=== PATIENT | female | born 1985 ===

== ENCOUNTER 2017-03-04 17:54 | Emergency (ER) | payer OTHER ==
[2017-03-04 18:00] VITALS: BMI 23.9
[2017-03-04 18:16] VITALS: TEMP 98.1
--- NOTE | 2017-03-04 18:21 | ED PDOC ---
Arrival/HPI - General Time Seen by Provider: 03/04/17 18:00 Historian: Patient - History of Present Illness Narrative History of Present Illness (Text): 03/04/17 18:08 A 31 year old female presents to the emergency department complaining of back pain radiating to left side of chest since 08:40 this morning. Patient describes the pain as a sharp sensation, left side worse then right, with tightness in her left chest. She states the pain is worse when taking deep breaths and with movement. Patient notes mild shortness of breath and nausea but denies any recent trauma, injury, fever, chills, vomiting, diarrhea, abdominal pain, cough, sore throat, runny nose, dizziness, lower extremity pain/ swelling or any other complaints. Patient is on control. She denies any recent travel or surgeries. PMD: Dr. Prajapati Time/Duration: Other (08:40 this morning) Symptom Course: Unchanged Quality: Other Context: Home, Work Past Medical History - Provider Review Nursing Documentation Reviewed: Yes Family/Social History - Physician Review Nursing Documentation Reviewed: Yes Family/Social History: No Known Family HX Allergies/Home Meds Allergies/Adverse Reactions: Allergies No Known Allergies Allergy (Verified 03/04/17 17:59) Review of Systems - Physician Review All systems were reviewed & negative as marked: Yes - Review of Systems Constitutional: absent: Fevers, Night Sweats ENT: absent: Sore Throat, Rhinorrhea Respiratory: SOB. absent: Cough Cardiovascular: Chest Pain (Left sided chest tightness) Gastrointestinal: Nausea. absent: Abdominal Pain, Diarrhea, Vomiting Musculoskeletal: Back Pain (Left side worse than right). absent: Other (LE pain /swelling) Neurological: absent: Dizziness Physical Exam Vital Signs Reviewed: Yes Vital Signs Temp Pulse Resp BP Pulse Ox 03/04/17 21:20 81 16 128/73 98 03/04/17 19:45 77 16 123/81 100 03/04/17 19:07 92 H 18 129/92 H 99 03/04/17 18:08 98.1 F 86 16 129/96 H 99 03/04/17 18:06 96 H 20 129/96 H 100 Temperature: Afebrile Blood Pressure: Hypertensive Pulse: Tachycardic Respiratory Rate: Normal Appearance: Positive for: Well-Appearing, Non-Toxic, Comfortable Pain Distress: None Mental Status: Positive for: Alert and Oriented X 3 - Systems Exam Head: Present: Atraumatic, Normocephalic Pupils: Present: PERRL Conjunctiva: Present: Normal Mouth: Present: Moist Mucous Membranes Neck: Present: Normal Range of Motion Respiratory/Chest: Present: Clear to Auscultation, Good Air Exchange. No: Respiratory Distress, Accessory Muscle Use Cardiovascular: Present: Regular Rate and Rhythm, Normal S1, S2. No: Murmurs Abdomen: Present: Normal Bowel Sounds. No: Tenderness, Distention, Peritoneal Signs Back: Present: Other (Tenderness to palpation to left upper back around trapezius area) Upper Extremity: Present: Normal Inspection. No: Cyanosis, Edema Lower Extremity: Present: Normal Inspection. No: Edema Neurological: Present: GCS=15, CN II-XII Intact, Speech Normal Skin: Present: Warm, Dry, Normal Color. No: Rashes Psychiatric: Present: Alert, Oriented x 3, Normal Insight, Normal Concentration Medical Decision Making ED Course and Treatment: 03/04/17 18:08 Impression: A 31 year old female with back pain radiating to left chest. Patient notes mild shortness of breath and nausea. Plan: -- Chest angio CT -- Chest xray -- EKG -- Labs -- Urinalysis -- Toradol -- Reassess and disposition Progress Notes: EKG shows NSR at 89 BPM with normal intervals, normal axis, no ST/T changes. Interpreted by me. CXR: nad Report Date : 03/04/2017 21:04:00 EXAM: CT Chest With Intravenous Contrast Dictated By: Aaron Richards MD IMPRESSION: 1. No aortic dissection. 2. Incidental/non-acute findings are described above. 03/04/17 21:53 Patient with noted history of atypical chest pain. EKG is normal. She had a normal echo done earlier this year. Labs are unremarkable. CTA done showing no PE or dissection or concerning findings. Patient is low risk for acs and ok for d/c. 03/04/17 21:59 - Lab Interpretations Lab Results: 03/04/17 18:30 03/04/17 18:30 Lab Results 03/04/17 18:35: Urine Color Yellow, Urine Appearance Clear, Urine pH 6.0, Ur Specific [place] 1.010, Urine Protein Negative, Urine Glucose (UA) Negative, Urine Ketones Negative, Urine Blood Small H, Urine Nitrate Negative, Urine Bilirubin Negative, Urine Urobilinogen 1.0 H, Ur Leukocyte Esterase Trace H, Urine RBC 2 - 5, Urine WBC 1 - 3, Ur Epithelial Cells 4 - 5, Urine Bacteria Few 03/04/17 18:30: Sodium 139, Potassium 3.9, Chloride 100, Carbon Dioxide 26, Anion Gap 17, BUN 10, Creatinine 0.7, Est GFR ( Amer) > 60, Est GFR (Non- Af Amer) > 60, Random Glucose 98, Calcium 9.4, Magnesium 2.0, Total Bilirubin 0.5, AST 22, ALT 32, Alkaline Phosphatase 64, Lactate Dehydrogenase 363, Total Creatine Kinase 101, Troponin I < 0.01, NT-Pro-B Natriuret Pep 78.2, Total Protein 7.4, Albumin 4.5, Globulin 2.9, Albumin/Globulin Ratio 1.6, Lipase 49 03/04/17 18:30: PT 11.4, INR 1.06, APTT 31.3 H 03/04/17 18:30: WBC 8.5, RBC 4.35, Hgb 13.0, Hct 38.5, MCV 88.5, MCH 29.9, MCHC 33.8, RDW 12.8, Plt Count 346, MPV 10.6, Gran % 63.6, Lymph % (Auto) 26.8, Worth % (Auto) 5.9, Eos % (Auto) 3.1, Baso % (Auto) 0.6, Gran # 5.41, Lymph # 2.3, Worth # 0.5, Eos # 0.3, Baso # 0.05 I have reviewed the lab results: Yes - RAD Interpretation Radiology Orders: 03/04/17 18:08 CHEST PORTABLE [RAD] Stat 03/04/17 18:09 ANGIO CHEST/ABDOMEN/PELVIS [CT] Stat - Medication Orders Current Medication Orders: Discontinued Medications Diazepam (Valium) 5 mg PO ONCE ONE Stop: 03/04/17 21:24 Last Admin: 03/04/17 21:48 Dose: 5 mg Iohexol (Omnipaque 350 100 Ml) Confirm Administered Dose 350 mg .ROUTE .STK-MED ONE Stop: 03/04/17 19:10 Ketorolac Tromethamine (Toradol) 30 mg IVP STAT STA Stop: 08/29/17 18:10 Last Admin: 03/04/17 18:41 Dose: 30 mg - Asteribe Statement The provider has reviewed the documentation as recorded by the Iglesia Leal Provider Iglesia Attestation: All medical record entries made by the Asteribe were at my direction and personally dictated by me. I have reviewed the chart and agree that the record accurately reflects my personal performance of the history, physical exam, medical decision making, and the department course for this patient. I have also personally directed, reviewed, and agree with the discharge instructions and disposition. Disposition/Present on Arrival - Present on Arrival Any Indicators Present on Arrival: No - Disposition Have Diagnosis and Disposition been Completed?: Yes Diagnosis: Atypical chest pain Disposition: HOME/ ROUTINE Disposition Time: 22:00 Patient Plan: Discharge Condition: GOOD Discharge Instructions (ExitCare): Chest Pain (ED) Additional Instructions: Take the medications as prescribed. Follow up with your primary care doctor. Return to the emergency department if any new concerning symptoms. Prescriptions: Baclofen [Lioresal] 1 cap PO TID PRN #15 tab PRN Reason: Pain, Moderate (4-7) Naproxen [Naprosyn] 500 mg PO BID PRN #20 tab PRN Reason: Pain Referrals: Yandy Prajapati MD [Primary Care Provider] - Follow up with primary
[2017-03-04 18:51] LABS: BASO # 0.05 K/mm3 (0.0-2.0); BASO % 0.6 % (0.0-3.0); EOS # 0.3 (0.0-0.7); EOS % 3.1 % (1.5-5.0); GRAN # 5.41 (1.4-6.5); GRAN % 63.6 % (50.0-68.0); HEMATOCRIT 38.5 % (36.0-48.0); LYMPH # 2.3 (1.2-3.4); LYMPH % 26.8 % (22.0-35.0); MEAN CELL VOLUME 88.5 fl (80.0-105.0); MEAN CORPUSCULAR HEMOGLOBIN 29.9 pg (25.0-35.0); MEAN CORPUSCULAR HGB CONC 33.8 g/dl (31.0-37.0); MEAN PLATELET VOLUME 10.6 fl (7.0-11.0); MONO # 0.5 (0.1-0.6); MONO % 5.9 % (1.0-6.0); RED CELL DISTRIBUTION WIDTH 12.8 % (11.5-14.5); WHITE BLOOD COUNT 8.5 10^3/ul (4.5-11.0)
[2017-03-04 18:51] LABS: URINE BILIRUBIN NEGATIVE (NEGATIVE); URINE BLOOD SMALL (NEGATIVE); URINE GLUCOSE (UA) NEGATIVE (NEGATIVE); URINE KETONE NEGATIVE (NEGATIVE); URINE LEUKOCYTE ESTERASE TRACE Leu/uL (NEGATIVE); URINE PROTEIN NEGATIVE mg/dL (<30 mg/dL)
[2017-03-04 18:52] LABS: URINE APPEARANCE CLEAR (CLEAR); URINE COLOR YELLOW (YELLOW)
[2017-03-04 18:53] LABS: ALB/GLOB RATIO 1.6 (1.1-1.8); ALKALINE PHOSPHATASE 64 U/L (38-133); ALT/SGPT 32 U/L (7-56); AST/SGOT 22 U/L (15-39); BILIRUBIN,TOTAL 0.5 mg/dL (0.2-1.3); BLOOD UREA NITROGEN 10 mg/dL (7-21); CALCIUM 9.4 mg/dL (8.4-10.5); CARBON DIOXIDE 26 mmol/L (21-33); CHLORIDE 100 mmol/L (98-107); GFR AFRICAN-AMERICAN > 60; GLUCOSE,RANDOM 98 mg/dL (70-110); LIPASE 49 U/L (23-300); POTASSIUM 3.9 mmol/L (3.6-5.0); SODIUM 139 mmol/L (132-148); TOTAL PROTEIN 7.4 g/dL (5.8-8.3)
[2017-03-04 18:58] LABS: INR 1.06 (0.93-1.08); PARTIAL THROMBOPLASTIN TIME 31.3 Seconds (23.7-30.8)
[2017-03-04 18:59] LABS: URINE BACTERIA FEW (NEG)
[2017-03-04 19:07] LABS: TROPONIN I < 0.01 ng/mL
[2017-03-04] MEDS ORDERED: Iohexol 350 MG/100 ML VIAL ONE (19:09)
[2017-03-04 19:47] VITALS: RESP 16
--- NOTE | 2017-03-04 21:05 | CT ---
EXAM: CT Chest With Intravenous Contrast CLINICAL HISTORY: 31 years old, female; Pain; Chest pain; Type not specified; Abdominal pain; Acute; Additional info: L side cp/back pain - R/O pe / dissection TECHNIQUE: Axial computed tomography images of the chest with intravenous contrast during the arterial phase of enhancement. All CT scans at this facility use one or more dose reduction techniques, viz.: automated exposure control; ma/kV adjustment per patient size (including targeted exams where dose is matched to indication; i.e. head); or iterative reconstruction technique. CONTRAST: 100 mL of OMNI 350 administered intravenously. COMPARISON: No relevant prior studies available. FINDINGS: Pulmonary arteries: No pulmonary embolism. Aorta: No dissection. No aneurysm. Lungs: Minimal atelectasis. No consolidation. Pleural space: No significant effusion. No pneumothorax. Heart: No cardiomegaly. No significant pericardial effusion. Bones/joints: No acute fracture. Soft tissues: Unremarkable. Lymph nodes: No pathologically enlarged lymph nodes. IMPRESSION: 1. No aortic dissection. EXAM: CT Abdomen and Pelvis With Intravenous Contrast CLINICAL HISTORY: 31 years old, female; Pain; Chest pain; Type not specified; Abdominal pain; Acute; Additional info: L side cp/back pain - R/O pe / dissection TECHNIQUE: Axial computed tomography images of the abdomen and pelvis with intravenous contrast during the arterial phase of enhancement. All CT scans at this facility use one or more dose reduction techniques, viz.: automated exposure control; ma/kV adjustment per patient size (including targeted exams where dose is matched to indication; i.e. head); or iterative reconstruction technique. CONTRAST: 100 mL of OMNI 350 administered intravenously. COMPARISON: No relevant prior studies available. FINDINGS: Lower thorax: No acute findings. VASCULATURE: Aorta: No aortic dissection. Celiac trunk and mesenteric arteries: No occlusion or significant stenosis. Renal arteries: No occlusion or significant stenosis. Iliac arteries: No occlusion or significant stenosis. ABDOMEN: Liver: No mass. Gallbladder and bile ducts: No calcified stones. No ductal dilation. Pancreas: No ductal dilation. No mass. Spleen: No splenomegaly. Adrenals: No mass. Kidneys and ureters: No hydronephrosis. No solid mass. Stomach and bowel: No definite mucosal thickening. No obstruction. Appendix: No findings to suggest acute appendicitis. PELVIS: Bladder: Unremarkable. No mass. Reproductive: IUD. ABDOMEN and PELVIS: Intraperitoneal space: No significant fluid collection. No free air. Bones/joints: No acute fracture. Soft tissues: Tiny umbilical hernia containing fat. Lymph nodes: No pathologically enlarged lymph nodes. IMPRESSION: 1. No aortic dissection. 2. Incidental/non-acute findings are described above.
[2017-03-04 21:21] VITALS: BP 128/73; PULSE 81; O2SAT 98
--- NOTE | 2017-03-05 08:20 | RAD ---
HISTORY: chest pain; back pain COMPARISON: Chest radiographs 07/29/2016 FINDINGS: LUNGS: No active pulmonary disease. PLEURA: No significant pleural effusion identified, no pneumothorax apparent. CARDIOVASCULAR: Normal. OSSEOUS STRUCTURES: No significant abnormalities. VISUALIZED UPPER ABDOMEN: Patient rotated towards the right which may be simulating left hemidiaphragm elevation though this is not completely excluded. OTHER FINDINGS: None. IMPRESSION: No acute infiltrate or pleural effusion. No cardiomegaly. Left hemidiaphragm elevation is in question however the patient is rotated towards the right which could be simulating this.
--- NOTE | 2017-03-05 09:32 | CARD ---
APPROVED REPORT EKG Measurement Heart [id number] <Conclusion> Normal sinus rhythm Normal ECG
== END 2017-03-04 22:44 | disposition home or self-care (01) ==
LOC: ED 17:54
DX: R07.89 Other chest pain (principal)
CPT/HCPCS: 71010; 71270; 74175; 80053; 81001; 82550; 83615; 83690; 83735; 83880; 84484; 85025; 85610; 85730; 87086; 93005; 96374; 99284; J1885; Q9967